=== PATIENT | female | born 1985 ===

== ENCOUNTER 2023-02-28 18:25 | Outpatient (CLI) | payer BC, OTHER, SELFPAY ==
[2023-02-28 23:13] LABS: Chlamydia DNA Amplified* NOT DETECTED (No Detected); GC DNA Amplified* NOT DETECTED (No Detected)
== END 2023-02-28 18:26 | disposition home or self-care (01) ==
LOC: LKVREF 18:27
PROVIDERS: Visit Provider Nurse Practitioner Family
DX: Z11.3 Encounter for screening for infections with a predominantly sexual mode of transmission (principal)
CPT/HCPCS: 87086; 87186; 87491; 87591

== ENCOUNTER 2023-06-27 19:33 | Outpatient (CLI) | payer BC, OTHER, SELFPAY ==
--- NOTE | 2023-07-10 08:58 | W.PM.SLEEP ---
Sleep Study Details Details Interpreting Provider: Jefferson Date of Sleep Study: 06/27/23 Sleep Study Details: STUDY TYPE:? Home unattended ? BMI:? 26.8 ORDERING PROVIDER:Candace Paulino INDICATION:? Concerns about sleep apnea ? SLEEP SUMMARY:? 430 minutes monitored RESPIRATORY SUMMARY:? AHI 3.6, supine 4.0, left lateral 3.9, right lateral 2.9 Low oxygen 88 0.1% of study oxygen less than 90% Snoring 0% PERIODIC LIMB MOVEMENTS OF SLEEP:? Not recorded during home study CARDIAC:? Range 52-89 beats per minute, mean 62.2 beats per minute IMPRESSION:? This study does not demonstrate clinically significant obstructive sleep apnea. If sleep disorder is strongly suspected an in-lab study is recommended. RECOMMENDATION: See impression
== END 2023-06-27 19:34 | disposition home or self-care (01) ==
LOC: SLEEP 19:34 → LAB 19:47
PROVIDERS: Visit Provider Otolaryngology
DX: G47.30 Sleep apnea, unspecified (principal); G47.10 Hypersomnia, unspecified; R06.83 Snoring
CPT/HCPCS: 95806

== ENCOUNTER 2024-01-17 13:39 | Outpatient (CLI) | payer BC, OTHER, SELFPAY ==
[2024-01-17 23:30] LABS: Chlamydia DNA Amplified* NOT DETECTED (No Detected); GC DNA Amplified* NOT DETECTED (No Detected)
== END 2024-01-17 13:40 | disposition home or self-care (01) ==
PROVIDERS: PCP Nurse Practitioner Family; Visit Provider Nurse Practitioner Family
DX: Z11.3 Encounter for screening for infections with a predominantly sexual mode of transmission (principal)
CPT/HCPCS: 80053; 80061; 83520; 86592; 86703; 86803; 87340; 87491; 87591

== ENCOUNTER 2025-07-02 09:55 | Outpatient (CLI) | payer OTHER, SELFPAY | END 2025-07-02 09:56 | disposition home or self-care (01) | LOC: NFLDREF 07-07 22:04 | PROVIDERS: PCP Family Medicine; Referring Provider Nurse Practitioner Family; Visit Provider Family Medicine | DX: Z00.00 Encounter for general adult medical examination without abnormal findings (principal); Z13.29 Encounter for screening for other suspected endocrine disorder; Z13.6 Encounter for screening for cardiovascular disorders | CPT/HCPCS: 80053; 80061; 84443 ==